=== PATIENT | female | born 1945 | race Caucasian/White ===

== ENCOUNTER 2017-05-13 09:40 | Emergency (ER) | payer MEDICARE ==
[~2017-05-13] VITALS: Ht 162.6 cm; Wt 114.0 kg
[~2017-05-13 09:40] MED LIST: ALBI1INJ SQ; ASPI-110 PO; FERR1TAB36 PO; HYDR12.57 PO; INSU1INJ14 SQ; LETR2.5T PO; LOSA25TA PO; MULT1TAB84 PO; SERT-129 PO; SIMV40TA PO; VITA10003 PO; ZANT150T2 PO
[2017-05-13 10:05] VITALS: BP 166/80; PULSE 64; RESP 16; TEMP 97.8; O2SAT 97
[2017-05-13] MEDS ORDERED: CHOL400D2 PO (11:03)
[2017-05-13] MEDS ORDERED: MULTTAB67 PO (11:03)
[2017-05-13] MEDS ORDERED: Iron PO (11:03)
[2017-05-13] MEDS ORDERED: FURO1TAB62 PO (11:05)
--- NOTE | 2017-05-13 11:16 | PD ---
HPI Chief Complaint: Injury Time Seen by Provider: 10:48 Travel History International Travel<30 days: No Contact w/Intl Traveler<30days: No Traveled to known affect area: No History of Present Illness HPI 72-year-old female complains of right knee pain. Patient states that she fell last night. Patient states that she landed on her right knee. Patient complains of severe pain localized to right knee. Patient denies any pain radiation. Patient states that the pain is worse with movement. On a scale of 1-10 the pain is a 6. Patient has history of TIA, diabetes, hypertension, hyperlipidemia, chronic kidney disease, stage IV. Patient also have history of liver cancer. PFSH Past Medical History Hx Anticoagulant Therapy: Yes (BABY ASA DAILY) Arthritis: Yes Depression: Yes Cancer: Yes (Rt. breast, liver) Cardiovascular Problems: Yes (HTN, CHOL) High Cholesterol: Yes Cerebrovascular Accident: Yes (TIA) Diabetes: Yes Patient Takes Glucophage: No Diminished Hearing: No Endocrine: Yes GERD: Yes Genitourinary: No Hepatitis: No Hiatal Hernia: Yes Hypertension: Yes Immune Disorder: No Kidney Stones: Yes Musculoskeletal: Yes (Back pain) Neurologic: Yes (Neuropathy, leg cramps ) Psychiatric: Yes Reproductive: No Respiratory: Yes (Sleep apnea, uses CPAP ) Radiation Therapy: Yes Renal Failure: Yes (Stage 4) Sleep Apnea: Yes Thyroid Disease: No Tetanus Vaccination: > 5 Years Influenza Vaccination: No ?: Not Menopausal: Yes Past Surgical History Abdominal Surgery: Yes (LAPPROSCOPIC GALLBLADER & APPENDECTOMY ) AICD: No Appendectomy: Yes Body Medical Devices: MARKER ON R BREAST Cardiac Surgery: No Cholecystectomy: Yes Ear Surgery: No Endocrine Surgery: No Eye Surgery: Yes (Lasik Rt. eye ) Genitourinary Surgery: Yes (Kidney stone removal) Gynecologic Surgery: Yes (Rt. lumpectomy ) Joint Replacement: No Oral Surgery: No Pacemaker: No Thoracic Surgery: No Other Surgery: Yes (REMOVAL OF KIDNEY STONE) Social History Alcohol Use: No Tobacco Use: No (Vaporizer) Substance Use: No Allergies-Medications (Allergen,Severity, Reaction): Coded Allergies: Codeine (Verified Allergy, Severe, Itching, 05/13/17) Reported Meds & Prescriptions Reported Meds & Active Scripts Active Reported Lasix (Furosemide) 20 Mg Tab 20 Mg PO DIRECTED PRN edema Vitamin D (Cholecalciferol) 400 Unit/Ml Drops 400 Units PO DAILY [Iron] 1 Tab PO DAILY Multiple Vitamin 1 Tab 1 Tab PO DAILY Aspirin 81 (Aspirin) 81 Mg Tabdr 81 Mg PO DAILY Simvastatin 40 Mg Tab 40 Mg PO HS Tanzeum 4-Pack Inj (Albiglutide) 30 Mg Pfpen 30 Mg SQ Q7D Tresiba Flextouch Pen Inj (Insulin Degludec Inj) 300 unit/3 ML Pen 60 Units SQ DAILY Sertraline (Sertraline HCl) 100 Mg Tab 100 Mg PO DAILY Letrozole 2.5 Mg Tab 1 Tab PO DAILY Hydrochlorothiazide 12.5 Mg Cap 12.5 Mg PO DAILY Losartan (Losartan Potassium) 25 Mg Tab 12.5 Mg PO DAILY Review of Systems General / Constitutional: No: Fever Eyes: No: Visual changes HENT: No: Headaches Cardiovascular: No: Chest Pain or Discomfort Respiratory: No: Shortness of Breath Gastrointestinal: No: Abdominal Pain Genitourinary: No: Dysuria Musculoskeletal: Positive: Pain Skin: No Rash Neurologic: No: Weakness Psychiatric: No: Depression Endocrine: No: Polydipsia Hematologic/Lymphatic: No: Easy Bruising Physical Exam Narrative GENERAL: Well-nourished, well-developed patient. SKIN: Focused skin assessment warm/dry. HEAD: Normocephalic. EYES: No scleral icterus. No injection or drainage. NECK: Supple, trachea midline. No JVD or lymphadenopathy. CARDIOVASCULAR: Regular rate and rhythm without murmurs, gallops, or rubs. RESPIRATORY: Breath sounds equal bilaterally. No accessory muscle use. GASTROINTESTINAL: Abdomen soft, non-tender, nondistended. MUSCULOSKELETAL: No cyanosis, or edema. BACK: Nontender without obvious deformity. No CVA tenderness. Patient has soft tissue swelling tenderness mild ecchymosis prepatellar area of the right knee. Limited range of motion of the right knee secondary to pain. Knee joints stable. Patient has mild tenderness to palpation posterior aspect the right knee also. Sensorimotor function distally intact. Data Data Last Documented VS Vital Signs Date Time Temp Pulse Resp B/P Pulse Ox O2 Delivery O2 Flow Rate FiO2 05/13/17 10:05 97.8 64 16 166/80 97 Orders Knee, Complete (4vws) (05/13/17 11:12) MDM Medical Decision Making Medical Screen Exam Complete: Yes Emergency Medical Condition: Yes Interpretation(s) 12:05 PM. X-ray right knee shows chronic changes. Positive for joint effusion. No acute fracture. Differential Diagnosis Differential diagnosis including contusion, sprain, fracture, dislocation. Narrative Course 72-year-old female with right knee injury. Knee immobilizer applied. Diagnosis Primary Impression: Contusion of right knee Qualified Code: S80.01XA - Contusion of right knee, initial encounter Patient Instructions: General Instructions Additional Instructions: Take medication as needed for pain. Ice pack. Follow-up with orthopedist. Med/Other Pt SpecificInfo: Prescription(s) given Scripts Hydrocodone-Acetaminophen ([place])5-325 mg Tab1 Tab PO Q6H PRN (PAIN) #30 TAB Prov:Rodger Perez MD 05/13/17 Disposition: 01 DISCHARGE HOME Condition: Stable Rodger Perez MD May 13, 2017 11:16
--- NOTE | 2017-05-13 12:03 | RADHPO ---
EXAM DATE/TIME: 05/13/2017 11:19 [facility] COMPARISON: No previous studies available for comparison. INDICATIONS : Right knee pain/swelling/bruising post fall. MEDICAL HISTORY : Renal calculi. Hypertension. Gastroesophageal reflux disease. Carcinoma, breast. Renal failure. SURGICAL HISTORY : Cholecystectomy Appendectomy. ENCOUNTER: Initial ACUITY: 1 day PAIN SCORE: 10/10 LOCATION: Right knee FINDINGS: Moderate osteoarthritis involving the patellofemoral as well as the femoral tibial (medial worse than lateral) joints. There is no acute fracture or dislocation. Small suprapatellar knee joint effusio n is noted. CONCLUSION: 1. Moderate osteoarthritis involving the patellofemoral and femoral tibial joints. 2. Small suprapatellar knee joint effusion. 3. No acute fracture or dislocation. Wellington Kinney MD on May 13, 2017 at 11:48 Board Certified Radiologist. This report was verified electronically.
[2017-05-13] MEDS ORDERED: NORC5TAB PO (12:09)
== END 2017-05-13 12:50 | disposition home or self-care (01) ==
LOC: PHED 09:40 → PHEFT 12:50
DX: S80.01XA Contusion of right knee, initial encounter (principal); W19.XXXA Unspecified fall, initial encounter
CPT/HCPCS: 73564; 99283; L1830

== ENCOUNTER 2017-07-20 19:33 | Emergency (ER) | payer MEDICARE ==
[~2017-07-20] VITALS: Ht 162.6 cm; Wt 114.0 kg
[~2017-07-20 19:33] MED LIST changes: +CHOL400D2 PO; -FERR1TAB36 PO; +FURO1TAB62 PO; +Iron PO; -MULT1TAB84 PO; +MULTTAB67 PO; +NORC5TAB PO; -VITA10003 PO; -ZANT150T2 PO
[2017-07-20 19:55] VITALS: BP 204/103; PULSE 81; RESP 20; TEMP 98.2; O2SAT 95
[2017-07-20] MEDS ORDERED: [UNRECOGNIZED DRUG - REMARK] PO (21:13)
--- NOTE | 2017-07-20 21:24 | PD ---
HPI Chief Complaint: Pain: Acute or Chronic Time Seen by Provider: 20:37 Travel History International Travel<30 days: No Contact w/Intl Traveler<30days: No Traveled to known affect area: No History of Present Illness HPI 72-year-old female presents emergency department for left posterior shoulder pain 1 day. Patient reports yesterday while attempting to put on fitted sheets on her mattress she lifted the mattress with her left arm and felt immediate pain in the posterior region of the shoulder. She reports she also felt a cracking sensation within the joint. She reports the pain has been constant within the joint it is worse with movement and relieved with rest. The pain is nonradiating. Severity 4/10. She denies any associating symptoms. She denies chest pain, shortness of breath, palpitations. PFSH Past Medical History Hx Anticoagulant Therapy: Yes (BABY ASA DAILY) Arthritis: Yes Depression: Yes Cancer: Yes (Rt. breast, liver) Cardiovascular Problems: Yes (HTN, CHOL) High Cholesterol: Yes Cerebrovascular Accident: Yes (TIA) Diabetes: Yes Patient Takes Glucophage: No Diminished Hearing: No Endocrine: Yes Gastrointestinal Disorders: Yes (GERD) GERD: Yes Genitourinary: No Hepatitis: No Hiatal Hernia: Yes Hypertension: Yes Immune Disorder: No Kidney Stones: Yes Musculoskeletal: Yes (Back pain) Neurologic: Yes (Neuropathy, leg cramps ) Psychiatric: Yes Reproductive: No Respiratory: Yes (Sleep apnea, uses CPAP ) Immunizations Current: No Radiation Therapy: Yes Renal Failure: Yes (Stage 4) Sleep Apnea: Yes Thyroid Disease: No Tetanus Vaccination: > 5 Years Influenza Vaccination: No ?: Not Menopausal: Yes Past Surgical History Abdominal Surgery: Yes (LAPPROSCOPIC GALLBLADER & APPENDECTOMY ) AICD: No Appendectomy: Yes Body Medical Devices: MARKER ON R BREAST Cardiac Surgery: No Cholecystectomy: Yes Ear Surgery: No Endocrine Surgery: No Eye Surgery: Yes (Lasik Rt. eye ) Genitourinary Surgery: Yes (Kidney stone removal) Gynecologic Surgery: Yes (Rt. lumpectomy ) Joint Replacement: No Oral Surgery: No Pacemaker: No Thoracic Surgery: No Other Surgery: Yes (REMOVAL OF KIDNEY STONE) Social History Alcohol Use: No Tobacco Use: No (VAPES) Substance Use: No Allergies-Medications (Allergen,Severity, Reaction): Coded Allergies: codeine (Unverified Allergy, Severe, Itching, 8/20/17) Reported Meds & Prescriptions Reported Meds & Active Scripts Active [place] (Hydrocodone-Acetaminophen) 5-325 mg Tab 1 Tab PO Q6H PRN Reported [Baking Soda Pill] 1 Tab PO DAILY Lasix (Furosemide) 20 Mg Tab 20 Mg PO DIRECTED PRN edema Vitamin D (Cholecalciferol) 400 Unit/Ml Drops 400 Units PO DAILY [Iron] 1 Tab PO DAILY Multiple Vitamin 1 Tab 1 Tab PO DAILY Aspirin 81 (Aspirin) 81 Mg Tabdr 81 Mg PO DAILY Simvastatin 40 Mg Tab 40 Mg PO HS Tanzeum 4-Pack Inj (Albiglutide) 30 Mg Pfpen 30 Mg SQ Q7D Tresiba Flextouch Pen Inj (Insulin Degludec Inj) 300 unit/3 ML Pen 60 Units SQ DAILY Sertraline (Sertraline HCl) 100 Mg Tab 100 Mg PO DAILY Letrozole 2.5 Mg Tab 1 Tab PO DAILY Hydrochlorothiazide 12.5 Mg Cap 12.5 Mg PO DAILY Losartan (Losartan Potassium) 25 Mg Tab 12.5 Mg PO DAILY Review of Systems Except as stated in HPI: all other systems reviewed are Neg General / Constitutional: No: Fever Eyes: No: Visual changes HENT: No: Headaches Cardiovascular: No: Chest Pain or Discomfort Respiratory: No: Shortness of Breath Gastrointestinal: No: Abdominal Pain Genitourinary: No: Dysuria Physical Exam Narrative GENERAL: Alert, well-appearing elderly female in no acute distress. SKIN: Focused skin assessment warm/dry. HEAD: Atraumatic. Normocephalic. EYES: Pupils equal and round. No scleral icterus. No injection or drainage. ENT: No nasal bleeding or discharge. Mucous membranes pink and moist. NECK: Trachea midline. No JVD. CARDIOVASCULAR: Regular rate and rhythm. No murmur appreciated. RESPIRATORY: No accessory muscle use. Clear to auscultation. Breath sounds equal bilaterally. GASTROINTESTINAL: Abdomen soft, non-tender, nondistended. Hepatic and splenic margins not palpable. MUSCULOSKELETAL: No obvious deformities. No clubbing. No cyanosis. No edema. Left upper extremity: TTP left posterior shoulder. No deformity. Positive Neer 's test. Full range of motion of the shoulder. 5 out of 5 strength in lower extremity. Equal hand grasp. Normal sensation. 2+ distal pulses. NEUROLOGICAL: Awake and alert. No obvious cranial nerve deficits. Motor grossly within normal limits. Normal speech. PSYCHIATRIC: Appropriate mood and affect; insight and judgment normal. Data Data Last Documented VS Vital Signs Date Time Temp Pulse Resp B/P (MAP) Pulse Ox O2 Delivery O2 Flow Rate FiO2 07/20/17 20:33 (136) 07/20/17 19:55 98.2 81 20 95 Orders Orders Shoulder, Complete (>2vws) (07/20/17 ) MDM Medical Decision Making Medical Screen Exam Complete: Yes Emergency Medical Condition: Yes Differential Diagnosis Shoulder dislocation, proximal humerus fracture, rotator cuff injury Narrative Course 72-year-old female with chief complaint of left shoulder pain times one day. Patient reports she injured the left shoulder when she attempted to lift the mattress to put on clean sheets. She felt the pain and cracking sensation with left shoulder. On exam there is no deformity. She has tenderness over the posterior aspect of the joint. She has pain with abduction of the shoulder. An x-ray pending X-ray of the left shoulder is negative for fracture dislocation. Patient be treated for left shoulder injury possible rotator cuff injury. She was offered a sling for comfort. Instructed to take [id number] Tylenol as needed for pain. Follow up with PCP. Patient verbalizes understanding and agrees to plan Diagnosis Primary Impression: Injury of left shoulder Qualified Codes: S49.92XA - Unspecified injury of left shoulder and upper arm , initial encounter Referrals: Primary Care Physician Additional Instructions: Use a sling as needed for comfort. Take [id number] Tylenol extra strength as needed for pain. Follow-up with her primary doctor for recheck. Return to emergency department if he developed new or worsening symptoms. Disposition: 01 DISCHARGE HOME Condition: Stable Alma Zaidi Jul 20, 2017 21:24
--- NOTE | 2017-07-20 21:45 | RADRPT ---
EXAM DATE/TIME: 07/20/2017 20:55 [facility] COMPARISON: No previous studies available for comparison. INDICATIONS : Left shoulder pain. MEDICAL HISTORY : None. SURGICAL HISTORY : None. ENCOUNTER: Initial ACUITY: 1 day PAIN SCORE: 4/10 LOCATION: Left shoulder. FINDINGS: No definite fractures, or dislocations are identified. No definite lytic or sclerotic lesion is seen . Slight hypertrophic changes are seen in the AC joint indenting the subacromial fat plane to a sligh t degree. CONCLUSION: No definite fracture is seen for technique. Jose Rafael Israel MD on July 20, 2017 at 21:43 Board Certified Radiologist. This report was verified electronically.
== END 2017-07-20 21:59 | disposition home or self-care (01) ==
LOC: PHED 19:33 → PHEFT 21:59
DX: S49.92XA Unspecified injury of left shoulder and upper arm, initial encounter (principal); X50.0XXA Overexertion from strenuous movement or load, initial encounter; Y93.E9 Activity, other interior property and clothing maintenance; E11.9 Type 2 diabetes mellitus without complications; G47.30 Sleep apnea, unspecified; G62.9 Polyneuropathy, unspecified; I10 Essential (primary) hypertension; K21.9 Gastro-esophageal reflux disease without esophagitis; K44.9 Diaphragmatic hernia without obstruction or gangrene; Z86.73 Personal history of transient ischemic attack (TIA), and cerebral infarction without residual deficits; Z87.442 Personal history of urinary calculi; Z79.82 Long term (current) use of aspirin
CPT/HCPCS: 73030; 99283

== ENCOUNTER 2017-07-25 15:10 | Emergency (ER) | payer MEDICARE ==
[~2017-07-25] VITALS: Ht 162.6 cm; Wt 114.0 kg
[~2017-07-25 15:10] MED LIST changes: +[UNRECOGNIZED DRUG - REMARK] PO
[2017-07-25 15:20] VITALS: BP 196/87; PULSE 91; RESP 18; TEMP 98.7; O2SAT 95
[2017-07-25 16:44] VITALS: BP 157/78; PULSE 69; RESP 18
--- NOTE | 2017-07-25 18:10 | PD ---
HPI Chief Complaint: Injury Time Seen by Provider: 17:29 Travel History International Travel<30 days: No Contact w/Intl Traveler<30days: No History of Present Illness HPI 72-year-old female presents to the emergency room for evaluation of left upper arm pain for the past 2 days. Patient states she had left shoulder pain 1 week ago after lifting a heavy mattress. She came to the emergency room and had an x -ray that was negative for acute abnormality. Patient was given sling for comfort. She has an appointment with her orthopedist in 5 days. States yesterday she went to open her car door with her left hand and upon squeezing the door handle felt immediate, sharp, shooting pain from her shoulder all the way down her left arm. States she had constant, dull aching in the biceps muscle since then. Pain is worsened with abduction. She has not taken anything because she has history of chronic kidney disease and doesn't like to take medication if she doesn't have to. States last night she noticed some bruising to the left upper arm that seemed to get worse today. She is on baby aspirin. PFSH Past Medical History Hx Anticoagulant Therapy: Yes (BABY ASA DAILY) Arthritis: Yes Depression: Yes Cancer: Yes (Rt. breast, liver) Cardiovascular Problems: Yes (HTN, CHOL) High Cholesterol: Yes Cerebrovascular Accident: Yes (TIA) Diabetes: Yes Patient Takes Glucophage: No Diminished Hearing: No Endocrine: Yes Gastrointestinal Disorders: Yes (GERD) GERD: Yes Genitourinary: No Hepatitis: No Hiatal Hernia: Yes Hypertension: Yes Immune Disorder: No Kidney Stones: Yes Musculoskeletal: Yes (Back pain) Neurologic: Yes (Neuropathy, leg cramps ) Psychiatric: Yes Reproductive: No Respiratory: Yes (Sleep apnea, uses CPAP ) Immunizations Current: No Radiation Therapy: Yes Renal Failure: Yes (Stage 4) Sleep Apnea: Yes Thyroid Disease: No Tetanus Vaccination: > 5 Years ?: Not Menopausal: Yes Past Surgical History Abdominal Surgery: Yes (LAPPROSCOPIC GALLBLADER & APPENDECTOMY ) AICD: No Appendectomy: Yes Body Medical Devices: MARKER ON R BREAST Cardiac Surgery: No Cholecystectomy: Yes Ear Surgery: No Endocrine Surgery: No Eye Surgery: Yes (Lasik Rt. eye ) Genitourinary Surgery: Yes (Kidney stone removal) Gynecologic Surgery: Yes (Rt. lumpectomy ) Joint Replacement: No Neurologic Surgery: No Oral Surgery: No Pacemaker: No Thoracic Surgery: No Other Surgery: Yes (REMOVAL OF KIDNEY STONE) Social History Alcohol Use: No Tobacco Use: No (VAPES quit 30 yrs) Substance Use: No Allergies-Medications (Allergen,Severity, Reaction): Coded Allergies: codeine (Unverified Allergy, Severe, Itching, 07/20/17) Reported Meds & Prescriptions Reported Meds & Active Scripts Active Clindamycin (Clindamycin HCl) 300 Mg Cap 300 Mg PO Q6H 7 Days [place] (Hydrocodone-Acetaminophen) 5-325 mg Tab 1 Tab PO Q6H PRN Reported [Baking Soda Pill] 1 Tab PO DAILY Lasix (Furosemide) 20 Mg Tab 20 Mg PO DIRECTED PRN edema Vitamin D (Cholecalciferol) 400 Unit/Ml Drops 400 Units PO DAILY [Iron] 1 Tab PO DAILY Multiple Vitamin 1 Tab 1 Tab PO DAILY Aspirin 81 (Aspirin) 81 Mg Tabdr 81 Mg PO DAILY Simvastatin 40 Mg Tab 40 Mg PO HS [place] 4-Pack Inj (Albiglutide) 30 Mg Pfpen 30 Mg SQ Q7D Tresiba Flextouch Pen Inj (Insulin Degludec Inj) 300 unit/3 ML Pen 60 Units SQ DAILY Sertraline (Sertraline HCl) 100 Mg Tab 100 Mg PO DAILY Letrozole 2.5 Mg Tab 1 Tab PO DAILY Hydrochlorothiazide 12.5 Mg Cap 12.5 Mg PO DAILY Losartan (Losartan Potassium) 25 Mg Tab 12.5 Mg PO DAILY Review of Systems Except as stated in HPI: all other systems reviewed are Neg Physical Exam Narrative GENERAL: Well-nourished, well-developed female in no acute distress. Afebrile. Ambulatory. SKIN: Focused skin assessment warm/dry. There is an approximately 14 cm in diameter area of ecchymosis to the left upper arm is extremely hot to palpation. No lymphangitis. HEAD: Normocephalic. EYES: No scleral icterus. No injection or drainage. NECK: Supple, trachea midline. No JVD or lymphadenopathy. CARDIOVASCULAR: Regular rate and rhythm without murmurs, gallops, or rubs. RESPIRATORY: Breath sounds equal bilaterally. No accessory muscle use. MUSCULOSKELETAL: No cyanosis. Mild to moderate edema over the distal humerus/ elbow. Pain with abduction. Full range of motion of the shoulder. No bony tenderness to palpation. No Kaveh deformity. 2+ radial pulse. Radial, ulnar , and median nerves intact. Data Data Last Documented VS Vital Signs Date Time Temp Pulse Resp B/P (MAP) Pulse Ox O2 Delivery O2 Flow Rate FiO2 07/25/17 16:44 69 18 157/78 (104) 07/25/17 15:20 98.7 95 Room Air MDM Medical Decision Making Medical Screen Exam Complete: Yes Emergency Medical Condition: Yes Medical Record Reviewed: Yes Differential Diagnosis Contusion, infection, fracture, tendon injury, rotator cuff injury Narrative Course 72-year-old female presents to the emergency room for evaluation of left upper arm for the past 1 week but worsened yesterday after she reinjured it. States the injury occurred when trying to pull open the door handle of her car. She had sharp shooting pain from her left shoulder following on her arm. Pain is worsened with abduction. Left upper extremity is neurovascularly intact with 2 + radial pulse. Radial, ulnar, and median nerves intact. Strength 5/5 and equal. There is a large hematoma to the left upper arm that is extremely hot. I'm concerned that the hematoma is becoming infected. There is no lymphangitis. Patient denies fever, chills, nausea, and vomiting. The area was outlined and purple marker. There is no indication for imaging of the left upper extremity. No bony tenderness to palpation. Patient will be discharged with prescription for Keflex and told to follow-up with her orthopedist as planned in 5 days. Told to return for worsening symptoms. She understands and agrees to plan. Diagnosis Primary Impression: Contusion of left upper arm Qualified Codes: S40.022A - Contusion of left upper arm, initial encounter Referrals: Primary Care Physician Additional Instructions: Rest and drink plenty of fluids. Take clindamycin as directed, until gone. Take Tylenol as directed, as needed for pain. Apply ice to the affected area for 20 minutes at a time, as needed for pain and swelling. Follow-up with an orthopedist. Return to the emergency room for worsening symptoms. Med/Other Pt SpecificInfo: Prescription(s) given Scripts Clindamycin (Clindamycin) 300 Mg Cap 300 MG PO Q6H for Infection for 7 Days, CAP 0 Refills Prov: Danny Feliz MD 07/25/17 Disposition: 01 DISCHARGE HOME Condition: Stable Faiza Lara Jul 25, 2017 18:10
[2017-07-25] MEDS ORDERED: CLIN1CAP6 PO (18:24)
== END 2017-07-25 18:43 | disposition home or self-care (01) ==
LOC: PHEFT 15:10
DX: S40.022A Contusion of left upper arm, initial encounter (principal); X50.0XXA Overexertion from strenuous movement or load, initial encounter; E11.22 Type 2 diabetes mellitus with diabetic chronic kidney disease; I12.0 Hypertensive chronic kidney disease with stage 5 chronic kidney disease or end stage renal disease; N18.6 End stage renal disease; Z87.891 Personal history of nicotine dependence; Z79.82 Long term (current) use of aspirin; E78.00 Pure hypercholesterolemia, unspecified; K21.9 Gastro-esophageal reflux disease without esophagitis; G62.9 Polyneuropathy, unspecified; G47.30 Sleep apnea, unspecified
CPT/HCPCS: 99283